=== PATIENT | male | born 2000 | race Caucasian/White ===

== ENCOUNTER 2018-11-22 13:28 | Emergency (ER) | payer OTHER ==
[~2018-11-22] VITALS: Ht 180.3 cm; Wt 89.8 kg
[2018-11-22] MEDS ORDERED: KETO10TA2 PO (15:48)
== END 2018-11-22 15:56 | disposition home or self-care (01) ==
LOC: ER 13:28
DX: S60.221A Contusion of right hand, initial encounter (principal); W22.8XXA Striking against or struck by other objects, initial encounter; Y93.89 Activity, other specified; Y92.89 Other specified places as the place of occurrence of the external cause; Y99.8 Other external cause status